=== PATIENT | male | born 1970 | race Caucasian/White ===

== ENCOUNTER 2017-01-26 18:01 | Emergency (ER) | payer OTHER ==
[~2017-01-26] VITALS: Ht 180.3 cm; Wt 92.6 kg
[2017-01-26 18:06] VITALS: BP 158/112
== END 2017-01-26 18:18 | disposition home or self-care (01) ==
LOC: ED 18:01
DX: S82.831A Other fracture of upper and lower end of right fibula, initial encounter for closed fracture (principal); S01.81XA Laceration without foreign body of other part of head, initial encounter; X58.XXXA Exposure to other specified factors, initial encounter; Y93.89 Activity, other specified; Y99.8 Other external cause status; Y92.89 Other specified places as the place of occurrence of the external cause
CPT/HCPCS: 90715; Q0092

== ENCOUNTER 2019-02-10 20:46 | Inpatient (IN) | payer SELFPAY ==
[~2019-02-10] VITALS: Ht 177.8 cm; Wt 93.0 kg
--- NOTE | 2019-02-10 21:13 | NUR ---
PT LYING IN BED, AAOX4 WITH C/O SUDDEN ONSET DIZZINESS WITH N/V X 30 MIN. PT DENIES ANY TRAUMA/INJURY. PT DENIES ANY DIARRHEA/CONSTIPATION, FEVER/CHILLS, RESP ILLNESS, OR URINARY PROBLEMS AT THIS TIME. SIGNIFICANT OTHER AT BEDSIDE.
[2019-02-10 21:28] LABS: BASOPHIL % 0.8 % (0-2); PLATELET COUNT 220 x10^3mcL (130-400); RED CELL DISTRIBUTION WIDTH 14.4 % (11.5-14.5)
[2019-02-10 21:38] LABS: CALCIUM 8.5 mg/dL (8.5-10.1); CARBON DIOXIDE 25.7 mmol/L (21-32); CHLORIDE SERUM 105 mmol/L (98-107); CREATININE SERUM 1.1 mg/dL (0.7-1.3); GFR1 > 60 mL/min; GLUCOSE SERUM 142 mg/dL (74-106); POTASSIUM SERUM 3.6 mmol/L (3.5-5.1); SODIUM SERUM 144 mmol/L (136-145)
[2019-02-10 21:42] LABS: ALBUMIN 3.8 g/dL (3.4-5.0); ALKALINE PHOSPHATASE 75 U/L (46-116); ALT/SGPT 38 U/L (16-63); AST/SGOT 26 U/L (15-37); BILIRUBIN TOTAL 0.6 mg/dL (0.20-1.00); TOTAL PROTEIN, SERUM 7.5 g/dL (6.4-8.2)
--- NOTE | 2019-02-10 22:07 | NUR ---
PT RESTING IN BED WITH EYES CLOSED WITH NO SIGNS OF DISTRESS AT THIS TIME. SIGNIFICANT OTHER AT BEDSIDE.
--- NOTE | 2019-02-10 22:35 | NUR ---
PT 'ROAD TESTED' BY EMT
--- NOTE | 2019-02-10 23:19 | NUR ---
PT RESTING IN BED WITH EYES CLOSED WITH BREATHS EVEN AND UNLABORED WITH NO SIGNS OF DISTRESS AT THIS TIME. SIGNIFICANT OTHER AT BEDSIDE.
--- NOTE | 2019-02-10 23:50 | NUR ---
REPORT GIVEN TO JOANNA BECKETT.
[2019-02-11 00:20] VITALS: BP 146/91
--- NOTE | 2019-02-11 00:30 | NUR ---
REPORT RECEIVED FROM JOANNA BECKETT FOR CONTINUATION OF CARE. RESTING IN BED. RESPIRATION EVEN AND UNLABORED, ON ROOM AIR. SALINE LOCK TO LEFT AC. ASSISTED WITH NEEDS. SAFETY OBSERVED. PLACED BED IN THE LOWEST POSITION. PLACED CALL LIGHT WITHIN REACH AT ALL TIMES.
--- NOTE | 2019-02-11 00:32 | NUR ---
RECEIVED PT FROM ER, PT ADMIT FOR ACUTE VERGITO. PT IS A/O X4, VERBAL RESPONSIVE, C/O DIZZINESS AND MORE SEVERE WHILE TURN THE HEAD TO LEFT. PT C/O HIS EYES ARE SHIFTING, UNABLE TO FOCUS ON OBJECT. LUNG SOUND CLEAR BILATERAL, NO COUGH, NO SOB, PT DENY ANY CHEST PAIN OR DISCOMFORT, BOWEL SOUND PRESENT ALL 4 QUADRANTS, NO DISTENTION, NO TENDER. PEDAL PULSE PRESENT BOTH FEET, NO EDEMA, IV AT LEFT AC, NO LEAKING, NO INFILTRAITON. ALL ADLS ASSIST, ALL NEED MET, CALL LIGHT IN REACH, WILL CONTINUE TO MONITOR.
[2019-02-11 01:31] LABS: microscopic required? YES; urine erythrocyte NEGATIVE (NEGATIVE)
[2019-02-11 01:59] LABS: AMPHETAMINE QUAL UR POSITIVE (See below)
--- NOTE | 2019-02-11 05:43 | NUR ---
PATIENT COMPLAINED OF DIZZINESS. ANTIVERT 25 MG PO GIVEN ORDERED. SAFETY OBSERVED. WILL CONTINUE TO MONITOR.
[2019-02-11 05:44] VITALS: BP 133/89
[2019-02-11 07:34] LABS: BASOPHIL % 0.5 % (0-2); PLATELET COUNT 191 x10^3mcL (130-400); RED CELL DISTRIBUTION WIDTH 14.2 % (11.5-14.5)
[2019-02-11 07:56] LABS: CALCIUM 7.7 mg/dL (8.5-10.1); CARBON DIOXIDE 25.4 mmol/L (21-32); CHLORIDE SERUM 106 mmol/L (98-107); CREATININE SERUM 0.9 mg/dL (0.7-1.3); GFR1 > 60 mL/min; GLUCOSE SERUM 97 mg/dL (74-106); MAGNESIUM 2.2 mg/dL (1.8-2.4); PHOSPHOROUS 3.9 mg/dL (2.5-4.9); POTASSIUM SERUM 3.8 mmol/L (3.5-5.1); SODIUM SERUM 142 mmol/L (136-145)
--- NOTE | 2019-02-11 09:00 | NUR ---
BACK FROM CT OF HEAD VIA WC. STATED STILL FEELING DIZZY. DENIES NAUSEA.
[2019-02-11 09:04] VITALS: BP 137/87
--- NOTE | 2019-02-11 10:20 | NUR ---
RESTING WITH EYES CLOSED. NO RESP DISTRESS NOTED. IVPB ROCEPHIN INFUSING WELL TO LFA IV SITE. TELE NEURO COMPUTER AT BEDSIDE. PATIENT MADE AWARE PLAN OF CARE.
--- NOTE | 2019-02-11 10:40 | NUR ---
Discount pharmacy card and list to low cost medical clinics given to patient by Dwight.
[2019-02-11 17:49] VITALS: BP 174/112
--- NOTE | 2019-02-11 19:02 | NUR ---
NO ANY DISTRESS THROUGHOUT SHIFT. ANTIVERT GIVEN X1 FOR DIZZINESS. USED URINAL TO VOID. TOLERATED TO REGULAR DIET WELL. ALL DUE MEDS GIVEN. S/L TO LAC INTACT AND PATENT.
[2019-02-11 19:29] VITALS: BP 136/92
--- NOTE | 2019-02-11 20:51 | NUR ---
RECEIVED PT IN BED AAOX4 , PT DENY VERTIGO AT THE MOMENT SITTING ON THE BED TALKING TO HIS FAMILY . LUNG SOUNDS CTA ABD SOFT BS ACTIVE X4, HL INTACT FLUSHING WELL . CALL LIGHT WITHIN PT'S REACH , WILL CON'T TO MONITOR PT CLOSELY.
--- NOTE | 2019-02-12 03:43 | NUR ---
I HAVE REVIEWED THE DATA COLLECTION BY SCHOOL MANAGER (NAME):GLENN GUPTA ENTERED ON (DATE/TIME): I CONCUR WITH THE DATA AND ANY EXCEPTIONS OR COMMENTS ARE LISTED BELOW:
[2019-02-12 05:29] VITALS: BP 157/116
--- NOTE | 2019-02-12 05:41 | NUR ---
BP 157/116 AM BP MEDS GIVEN NO BOBA AWARE .
[2019-02-12 07:20] LABS: BASOPHIL % 0.5 % (0-2); PLATELET COUNT 209 x10^3mcL (130-400); RED CELL DISTRIBUTION WIDTH 14.4 % (11.5-14.5)
--- NOTE | 2019-02-12 07:30 | NUR ---
RECEIVED PATIENT IN BED, ALERT AND ORIETNED, SPEECH CLEAR, DENIES ANY H/A OR DIZZINESS, BILAT GUARDIAN FAMILY MEMBER STRONG AND EQUAL. RESP EVEN AND UNLABORED. LUNGS CLEAR ON ROOM AIR. ABD SOFT, BOWEL SOUNDS ACTIVE. PATIENT INSTRUCTED TO USE CALL LIGHT FOR ASSIST. HL PATENT FLUSHED WELL, SITE PATENT. WILL CONTINUE TO MONITOR.
[2019-02-12 07:39] LABS: CALCIUM 8.4 mg/dL (8.5-10.1); CARBON DIOXIDE 26.3 mmol/L (21-32); CHLORIDE SERUM 105 mmol/L (98-107); GFR1 > 60 mL/min; GLUCOSE SERUM 107 mg/dL (74-106); MAGNESIUM 2.1 mg/dL (1.8-2.4); PHOSPHOROUS 3.3 mg/dL (2.5-4.9); POTASSIUM SERUM 3.9 mmol/L (3.5-5.1); SODIUM SERUM 141 mmol/L (136-145)
[2019-02-12 07:51] LABS: CHOLESTEROL/HDL RATIO 2.7
--- NOTE | 2019-02-12 08:10 | NUR ---
PATIENT'S PLAN OF CARE WAS DISCUSSED AND REVIEWED WITH CORPORATE RECEPTIONIST:MEGAN MASON. I HAVE REVIEWED THE DATA COLLECTION BY CORPORATE RECEPTIONIST (NAME):MEGAN MASON. ENTERED ON (DATE/TIME):02/12/19 I CONCUR WITH THE DATA AND ANY EXCEPTIONS OR COMMENTS ARE LISTED BELOW:
[2019-02-12 08:22] VITALS: BP 152/100
--- NOTE | 2019-02-12 09:50 | NUR ---
TELE 18 APPLIED ORDERED, NSR HR 80 AT THIS TIME. SCD'S APPLIED. PATIENT IS NPO EXCEPT FOR MEDS FOR SWALLOW EVAL. IVF STARTED ORDERED.
--- NOTE | 2019-02-12 10:01 | NUR ---
I HAVE REVIEWED THE DATA COLLECTION BY ANTONIO (NAME): MEGAN MASON ENTERED ON (DATE/TIME): 02/12/19 I CONCUR WITH THE DATA AND ANY EXCEPTIONS OR COMMENTS ARE LISTED BELOW:
--- NOTE | 2019-02-12 14:07 | NUR ---
PATIENT CONTINUES TO DENY ANY H/A OR DIZZINESS, SPEECH CLEAR. MOVES ALL EXTREMITES WELL. ECHOCARDIOGRAM IN PROGRESS AT THIS TIME. FAMILY MEMBERS HAVE BEEN INTO VISIT. CONDITON APPEARS STABLE AT THIS TIME.
--- NOTE | 2019-02-12 16:11 | NUR ---
PATIENT RESTING IN BED. ECHO COMPLETED. PATIENT COMPLETED MRI QUESTIONAIR. IVF INFUSING WELL, SITE PATENT. NO CHANGE IN CONDITION NOTED. PATIENT REMAINS NPO AT THIS TIME.
[2019-02-12 16:30] VITALS: BP 159/94
--- NOTE | 2019-02-12 16:52 | NUR ---
PT WAS SEEN FOR DYSPHAGIA. PT WAS ABLE TO SAFELY SWALLOW REGULAR DIET WITH THIN LIQUID WITHOUT S/S OF ASPIRATION. RECOMMENDATION REGULAR DIET WITH THIN LIQUID IN CONSULTATION WITH HIS DOCTOR. SMALL BITES AND SIPS ONLY SYUPERVISION DURING MEAL TIME.
--- NOTE | 2019-02-12 16:55 | NUR ---
SWALLOW EVAL DONE, PER ST PATIENT PASSED THE EVAL.
--- NOTE | 2019-02-12 18:27 | NUR ---
PATIENT IS IN BED, AWAKE ALERT HEPLOCKED FOR MRI AT THIS TIME. NO CHANGE IN CONDITION NOTED.
--- NOTE | 2019-02-12 18:48 | NUR ---
PATIENT OFF THE FLOOR DOWN VIA W/C FOR MRI AT THIS TIME. TELE MONITOR 18 REMOVED AND GIVEN TO ACCOUNTING LECTURER MARIIA TO KEEP UNTIL PATIENT IS RETURNED TO HIS ROOM AND TO BE PLACED BACK ON TELE ORDERED.
--- NOTE | 2019-02-12 19:15 | NUR ---
REPORT RECEIVED FROM OUTGOING PRODUCT INSPECTION SUPERVISOR. PT CURRENTLY IN MRI. WILL CONTINUE TO MONITOR ONCE PT RETURNS TO FLOOR.
[2019-02-12 19:50] VITALS: BP 168/96
--- NOTE | 2019-02-12 19:55 | NUR ---
PT BACK FROM MRI. FAMIY AT BEDSIDE. NO ACUTE DISTRESS NOTED. EVEN AND UNLABORED RESPIRATIONS ON RA. PLACED TELE#18 BACK ON PT, READING SR [address] SEGMENT. IV PATENT AND INTACT RUNNING FLUIDS PER EMAR. PT ON REG DIET. TOLERATING DIET WELL. BED IN LOWEST POSITION. SIDE RAILS UPX2. CALL LIGHT WITHIN REACH. WILL CONTINUE TO MONITOR.
--- NOTE | 2019-02-13 00:27 | NUR ---
PT ASLEEP COMFORTABLY IN BED. NO ACUTE DISTRESS NOTED. EVEN AND UNLABORED RESPIRATIONS ON RA. ON TELE# 18 READING SR [address] SEGMENT. IV PATENT AND INTANT RUNNING FLUIDS PER EMAR. BED IN LOWEST POSITION. SIDE RAILS UPX2. CALL LIGHT WITHIN REACH. WILL CONTINUE TO MONITOR.
--- NOTE | 2019-02-13 06:11 | NUR ---
PT SLEPT COMFORTABLY IN INTERVALS THROUGHOUT THE SHIFT. NO ACUTE CHANGES NOTED. ALL NEEDS TENDED TO AND MET. ALL SCHEDULED MEDICATIONS GIVEN. ON TELE#18 READING SR 71. IV PATENT AND INTACT RUNNING FLUIDS PER EMAR. TOLERATED REG DIET. NO C/O OF VERTIGO OR PAIN AT THIS TIME. BED IN LOWEST POSITION. SIDE RAILS UPX2. CALL LIGHT WITHIN REACH. WILL ENDORSE TO ONCOMING SHIFT.
[2019-02-13 06:35] VITALS: BP 159/99
[2019-02-13 07:14] LABS: BASOPHIL % 0.6 % (0-2); PLATELET COUNT 225 x10^3mcL (130-400); RED CELL DISTRIBUTION WIDTH 14.3 % (11.5-14.5)
--- NOTE | 2019-02-13 07:17 | NUR ---
RECEIVED REPOR FROM ENRIQUE BECKETT. PATIENT RESTING COMFORTABLY IN BED WITH ALL NEEDS MET. IV TO RFA IS PATENT AND INFUSING NS @ 70 ML/HR. NO REDNESS OR PAIN. TELE # [address] PATIENT DENIES CHEST PAIN. ALL QUESTIONS AND CONCERNS ADDRESSED.
[2019-02-13 07:46] LABS: CALCIUM 8.2 mg/dL (8.5-10.1); CARBON DIOXIDE 25.4 mmol/L (21-32); CHLORIDE SERUM 105 mmol/L (98-107); GFR1 > 60 mL/min; GLUCOSE SERUM 94 mg/dL (74-106); MAGNESIUM 2.1 mg/dL (1.8-2.4); PHOSPHOROUS 3.9 mg/dL (2.5-4.9); POTASSIUM SERUM 4.1 mmol/L (3.5-5.1); SODIUM SERUM 141 mmol/L (136-145)
[2019-02-13 09:32] VITALS: BP 154/102
--- NOTE | 2019-02-13 10:50 | NUR ---
ROUNDS: DR SPANN, RESIDENTS, PRIMARY RN AND ELECTRONIC NEWS GATHERING [employer] PERSON AT BEDSIDE. PLAN IS TO D/C TODAY WITH MEDICATION. DISCUSSED METH CESSATION AND PROTECTIVE EQUIPMENT WHILE WORKING. PT VERBLAIZED UNDERSTANDING AND ALL QUESTIONS AND CONCERNS WERE ADDRESSED.
[2019-02-13] MEDS ORDERED: ZES5 PO (12:22)
[2019-02-13] MEDS ORDERED: MECLIZINE HYDRO25 M1 PO (12:22)
[2019-02-13] MEDS ORDERED: CLARITIN10 MG PO (12:23)
[2019-02-13] MEDS ORDERED: FLONASE ALLERG9.9 ML NS (12:24)
[2019-02-13 13:01] VITALS: BP 142/101
[2019-02-13 13:04] VITALS: BP 154/102
--- NOTE | 2019-02-13 14:09 | NUR ---
PATIENT STABLE FOR DISCHARGE PER MD. DISCHARGE INSTRUCTIONS AND SUMMARY DISCUSSED WITH PATIENT. PATIENT VERBALIZED UNDERSTANDING AND AGREES TO FOLLOW UP WITH PRIMARY CARE DOCTOR. IV REMOVED AND IV POLE CLEARED. TELE # 18 REMOVED. MONITOR NOTIFIED. ID BANDS CUT. PT ESCOTRED TO LOBBY VIA WHEELCHAIR.
== END 2019-02-13 14:20 | disposition home or self-care (01) | DRG 153 ==
LOC: ED 20:46 → MU 23:18 → DU 23:18 → MU 23:59 → DU 02-12 08:40
PROVIDERS: Emergency Medicine; Internal Medicine; ADMIT Internal Medicine
DX: J01.40 Acute pansinusitis, unspecified (principal); N39.0 Urinary tract infection, site not specified; I10 Essential (primary) hypertension; G90.8 Other disorders of autonomic nervous system; I16.0 Hypertensive urgency; F15.10 Other stimulant abuse, uncomplicated; Z71.51 Drug abuse counseling and surveillance of drug abuser; Z79.899 Other long term (current) drug therapy
CPT/HCPCS: 84425; 92526-GN; 92610-GN; 97116-GP; 97530-GP; G0378; J0696; J2405; J2765; J7030; J7040; J8597; Q0092